=== PATIENT | male | born 1980 | race Caucasian/White ===

== ENCOUNTER 2017-05-31 00:46 | Emergency (ER) | payer BC, SELFPAY | END 2017-05-31 03:04 | disposition home or self-care (01) | PROVIDERS: Emergency Provider Emergency Medicine; Family Provider Family Medicine; Visit Provider Emergency Medicine | DX: K52.9 Noninfective gastroenteritis and colitis, unspecified (principal); E86.0 Dehydration; R73.9 Hyperglycemia, unspecified | CPT/HCPCS: 80053; 82150; 83690; 85025; 96365; 96375; 99284; J2405 ==

== ENCOUNTER → 2021-03-26 17:30 | Outpatient (CLI) | payer BC, SELFPAY | PROVIDERS: Visit Provider Nurse Practitioner Family | DX: Z20.822 Contact with and (suspected) exposure to COVID-19 (principal) | CPT/HCPCS: C9803; U0003; U0005 ==

== ENCOUNTER 2023-04-30 01:30 | Observation (INO) | payer BC, SELFPAY ==
[2023-04-30] VITALS (26 sets, daily range): BP systolic 128–174; BP diastolic 77–105; PULSE 59–108; RESP 16–20; TEMP 36.6–37.1; O2SAT 93–99; BMI 28.1
--- OUTSIDE RECORDS SUMMARY | 2023-04-30 01:39 | XMS_ITS | Continuity of Care Document ---
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 PATIENT OPEN ORDERS Code System Description Frequency Occurrences Priority [place] [id number] [facility] Chest X-ray 2 views ONE TIME 0 Routine March 31, 2023 2:35:00 PM [facility] MELLO Eason [id number] on March 31, 2023 2:43:00 PM [facility] SCHEDULED PROCEDURES Code System Description Status Scheduled Date Upd ated By Patient scheduled procedure information is not available. MEDICATIONS HOME MEDICATIONS Status RXNORM Medication Dose Route Frequency Dates Comments R eported By Updated By Drug Treatment Unknown DISCHARGE MEDICATIONS Status RXNORM Medication Dose Route Frequency Dates Comments Physic minerva Updated By No Discharge Medication Info rmation Available INPATIENT MEDICATIONS Status RXNORM Medication Dose Route Frequency Rate Quantity Dates Comments Physician Updated By No Inpatient Medication Info rmation Available SO
--- OUTSIDE RECORDS SUMMARY | 2023-04-30 01:39 | XMS_ITS | Continuity of Care Document ---
Author Name Unknown Organization [facility] Address [address] [place] [id number]- Care Team Providers Care Family Day Care Provider Name Role Phone NO, FAMILY (REF) Primary Care Physician Unavaila ble Encounter [facility] SONJA [id number] Date(s): 04/02/23 - 04/02/[address] [address]- [place] Encounter Diagnosis Epigastric abdominal pain(Discharge Diagnosis) - 04/02/23 Discharge Disposition: OP Self Care or Home Attending Physician: ANA SCHWARTZ MD-CHERYL Admitting Physician: ANA SCHWARTZ MD-EMR Referring Physician: JEFERSON, SELF REFERRED Allergies, Adverse Reactions, Alerts Substance Reaction Severity Status penicillin Active Assessment and Plan Extracted from: Title:Abdominal Pain *ED Author:ANA SCHWARTZ MD-CHERYL Date:04/02/23 Patient: SABAS CUTLER Age: 43 years Sex: Male : 1980 Associated Diagnoses: Epigastric abdominal pain Author: ANA SCHWARTZ MD-CHERYL Basic Information Time seen: Date & time 04/02/2023 04:38:00. History source: Patient. Arrival mode: Private vehicle. History limitation: None. History of Present Illness Patient is a 43-year-old male with no ported past medical history presents for epigastric abdominal pain which has been present intermittently over the past 8 months. States that approximately every 3 to 4 weeks he develops epigastric abdominal pain which is unrelenting. It then resolved spontaneously. He describes associated nausea and vomiting, has had multiple signs of vomiting this evening without blood and also nonbilious. No change in bowel movements. No dysuria. Patient afebrile upon arrival. He has been seen for this by his PCP, no medications have been prescribed. He has an outpatient ultrasound ordered, has been using [id number] GERD medications without relief. Denies tobacco, alcohol, illicit drug use. Denies any prior surgeries. No other new complaints. Physical Examination Vital Signs Vital Measurements 04/02/2023 4:29 EDT Pan Motor Response Obey commands Pan Verbal Response Oriented Pan Eye Opening Response Spontaneous Pan Coma Score 15 Temperature Source Oral Temperature, Fahrenheit 97.6 Deg F Clinical Temperature, C 36.4 Deg C Peripheral Pulse Rate 61 bpm Respiratory Rate 20 Breaths/Min Systolic Bl
--- OUTSIDE RECORDS SUMMARY | 2023-04-30 01:39 | XMS_ITS | Continuity of Care Document ---
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 Name Role Phone GERSON LARA Admitting Unavaila ble GERSON LARA Primary Attending GERSON Schmidt Primary Care sera [email or web address] RESULTS Patient: OMAYRA Aggarwal Date of : April 01 7 LABORATORY RESULTS Information is not available LABORATORY NARRATIVE RESULTS Information is not available RADIOLOGY RESULTS ORDER 100: CHEST 2 VIEWS ( INC: [id number]) ORDER DATE: March 31, 2023 2:35:00 PM [facility] PATHOLOGY NARRATIVE RESULTS Information is not available MICROBIOLOGY RESULTS No Micro Labs/Results Exist for Patient BLOOD ADMIN RESULTS Information is not available MEDICATIONS HOME MEDICATIONS Status RXNORM Medication Dose Route Frequency Dates Comments R eported By Updated By Drug Treatment Unknown DISCHARGE MEDICATIONS Status RXNORM Medication Dose Route Frequency Dates Comments Physic minerva Updated By No Discharge Medication Info rmation Available INPATIENT MEDICATIONS Status RXNORM Medication Dose Route Frequency Rate Quantity Dates
--- NOTE | 2023-04-30 02:09 | HMH.EDGENADL ---
Discharge Plan Disposition Patient Disposition: Home, Self-Care Chief Complaint: Abdominal Pain Prescriptions Prescriptions: No Action No Known Home Medications Referrals Follow up/Referrals: Salty Omalley [Primary Care Provider] - See instructions Clinical Impressions Clinical Impression: Acute calculous cholecystitis Instructions Patient Instructions: DI for Acute Abdominal Pain Discharge ED Provider: Samuel Rodriguez Adult HPI General Chief complaint: Abdominal Pain Stated complaint: stomach pain Time Seen by Provider: 04/30/23 01:32 Mode of Arrival: Ambulatory Source of Information: Patient Limitations: No Limitations Description of Symptoms (Recalled from ER Triage Doc. by RN): Pt presents with abdominal pain which he believes to be his gallbladder. Pt states he had similiar episode in Mar and CT showed gallstones, due to follow up with GI next week. Pt describes a midsternal burning pain that moves up and down his esophagus. History of Present Illness HPI narrative: 43-year-old male, reportedly previously healthy presents with worsening epigastric/right upper quadrant pain. He reports that he has had these pains in the past. He has been evaluated in March for similar symptoms and was diagnosed with symptomatic cholelithiasis. He has follow-up scheduled for later this week with GI and with surgery through [facility]. He presents tonight due to worsening pain and nausea and vomiting. He reports no fever at home. He reports pain radiates up and down his stomach, has not improved with antacids and viscous lidocaine in the past. Related Data Home Medications Medication Instructions Recorded Confirmed No Known Home Medications 03/26/21 03/26/21 Allergies Allergy/AdvReac Type Severity Reaction Status Date / Time Penicillins [PENICILLINS] Allergy Unknown Verified 03/26/21 15:40 [facility] Disclaimer: The information contained in this section may have been updated after the patient was seen, as this information can be updated by other users. Social History Smoking Status: Never smoker alcohol intake: never current occupational status: employed Travel in the last 8 weeks: None ROS Obtained: Yes All systems reviewed & no additional complaints except as documented Physical Exam General General appearance: alert and anxious Head Head exam: atraumatic and normocephalic Eye Eye exam: Present normal appearance, PERRL and EOMI ENT ENT exam: Present normal oropharynx and normal external ear exam Neck Neck exam: Present normal inspection and full ROM Chest Chest inspection: Present normal inspection and symmetric chest wall rise; Absent tenderness Respiratory Respiratory exam: Present normal lung sounds bilaterally; Absent respiratory distress Cardiovascular Cardiovascular exam: Present regular rate and normal rhythm Abdominal Exam Abdominal exam: Present soft and tenderness (Epigastric and right upper quadrant); Absent distention or guarding Extremities Exam Extremities exam: Present normal inspection; Absent edema or joint swelling Back Exam Back exam: Present normal inspection; Absent tenderness Neurological Exam Neurological exam: Present alert and oriented X3; Absent motor sensory deficit Psychiatric Psychiatric exam: Present normal affect and normal mood Skin Skin exam: Present warm, dry and normal color Lymphatic Lymphatic Findings: no adenopathy Medical Decision Making Medical Records Medical records reviewed: Yes I reviewed the patient's medical records. Anthony Inquiry Pt receiving controlled substance: No Anthony was queried for this patient: No Vital Signs: 04/30/23 01:31 04/30/23 02:00 04/30/23 02:30 Temperature 97.8 F Temperature Source Oral Pulse Rate 98 H 61 Pulse Rate [Left] 63 Respiratory Rate 18 Blood Pressure 152/105 H Blood Pressure [Right Arm] 174/101 H Blood Pressure Mean [Right Arm] 125 B
[2023-04-30 02:11] LABS: Basophils # 0.1 K/mm3 (0-0.2); Basophils % 0.7 % (0.1-2.0); Eosinophils # 0.2 K/mm3 (0.0-0.4); Eosinophils % 2.2 % (0.1-12.0); Hematocrit 48.9 % (42.0-52.0); Hemoglobin 16.2 g/dL (14.1-18.0); Lymphocytes # 2.1 K/mm3 (0.7-4.5); Lymphocytes % 21.3 % (10-50); Mean Corpuscular HGB Conc 33.1 g/dL (31.8-35.4); Mean Corpuscular Hemoglobin 27.6 pg (27.0-31.2); Mean Corpuscular Volume 83.5 fl (80-94); Mean Platelet Volume 8.7 fl (7.4-10.4); Monocytes # 0.7 K/mm3 (0.1-1.0); Monocytes % 7.1 % (1.7-9.3); Neutrophils # 6.9 K/mm3 (1.8-7.8); Neutrophils % 68.6 % (37.0-80.0); Platelet Count 263 K/mm3 (142-424); Red Blood Count 5.86 M/mm3 (4.60-6.20); Red Cell Distribution Width 13.9 % (11.5-17.5); White Blood Count 10.1 K/mm3 (4.8-10.8)
[2023-04-30 02:16] LABS: Chloride 101 mmol/L (98-107); Potassium 4.1 mmoL/L (3.5-5.1); Sodium 138 mmol/L (136-145)
[2023-04-30 02:18] LABS: Alanine Aminotransferase 55 U/L (12-78); Aspartate Amino Transferase 37 U/L (17-59); Blood Urea Nitrogen 14 mg/dl (9-20); Creatinine Clearance Estimated 135 mL/min (50-200); Estimated Glomerular Filt Rate 105 ml/min (>60); GFR (African American) 126 ML/MIN (>60)
[2023-04-30 02:19] LABS: Albumin Level 4.5 g/dl (3.5-5.0); Albumin/Globulin Ratio 1.5 (1.1-1.8); Alkaline Phosphatase 102 U/L (38-126); Anion Gap 11.1 mEq/L (5-15); Bilirubin,Total 0.5 mg/dl (0.2-1.3); Calcium 9.2 mg/dl (8.4-10.2); Carbon Dioxide 30 mmol/L (22.0-30.0); Glucose 123 mg/dl (74-100); Lipase 55 U/L (23-300); Total Protein,Serum 7.5 g/dl (6.3-8.2)
--- NOTE | 2023-04-30 04:43 | CT_ITS ---
PROCEDURE INFORMATION: Exam: CT Abdomen And Pelvis With Contrast Exam date and time: 04/30/2023 4:54 AM Age: 43 years old Clinical indication: Abdominal pain; Additional info: Epigastric/ruq pain TECHNIQUE: Imaging protocol: Computed tomography of the abdomen and pelvis with contrast. Radiation optimization: All CT scans at this facility use at least one of these dose optimization techniques: automated exposure control; mA and/or kV adjustment per patient size (includes targeted exams where dose is matched to clinical indication); or iterative reconstruction. Contrast material: ISOVUE; Contrast volume: 75 ml; Contrast route: IV; REPORTING DATA: Count of CT and Cardiac NM exams in prior 12 months: This patient has received 0 known CTs and 0 known cardiac nuclear medicine studies in the 12 months prior to the current study. COMPARISON: No relevant prior studies available. FINDINGS: Liver: No acute findings. No mass. Gallbladder and bile ducts: Distended gallbladder with subtle pericholecystic inflammatory changes but no biliary ductal dilation. Pancreas: No acute findings, focal abnormality or ductal dilation. Spleen: Calcified granulomata in the spleen. Adrenal glands: Normal. No mass. Kidneys and ureters: No hydronephrosis. Stomach and bowel: No obstruction. No mucosal thickening. Appendix: No evidence of appendicitis. Intraperitoneal space: No free air. No significant fluid collection. Vasculature: No abdominal aortic aneurysm. Lymph nodes: No pathologically enlarged lymph nodes. Urinary bladder: Unremarkable as visualized. Reproductive: Unremarkable as visualized. Bones/joints: No acute fracture. Soft tissues: Uncomplicated fat containing paraumbilical hernia. Uncomplicated bilateral fat containing inguinal hernias. IMPRESSION: Findings suggestive of acute cholecystitis without significant biliary ductal dilation. Follow-up right upper quadrant ultrasound if clinically indicated.
--- NOTE | 2023-04-30 04:51 | PC.NURSE ---
Pt being transported to CT
--- NOTE | 2023-04-30 05:45 | PC.NURSE ---
Attending speaking to Dr. Wiley
--- NOTE | 2023-04-30 05:50 | PC.NURSE ---
Per ER attending, we will need to page ultrasound to come in for RUQ exam as per discussion with Dr. Wiley r/t CT findings suggestive of Acute Cholecystitis. Valentin in radiology notified to page full stack python developer ultrasound for RUQ exam needed prior to admit/transfer/dc
--- NOTE | 2023-04-30 05:53 | US_ITS ---
PROCEDURE INFORMATION: Exam: US Abdomen, Limited; Soft Tissue Exam date and time: 04/30/2023 6:36 AM Age: 43 years old Clinical indication: Abdominal pain; Acute; Additional info: Ruq pain, CT indeterminate TECHNIQUE: Imaging protocol: US abdomen. Real time ultrasound with image documentation. Limited exam focused on the soft tissues. COMPARISON: CT ABDOMEN PELVIS W CON 04/30/2023 4:54 AM FINDINGS: Gallbladder: Multiple gallstones are identified. There is mild gallbladder wall thickening measuring up to 6 mm. There is trace pericholecystic fluid. Soft tissues: Unremarkable. No masses or collections in visualized area. IMPRESSION: Multiple gallstones. Mild gallbladder wall thickening and trace pericholecystic fluid.
--- NOTE | 2023-04-30 07:07 | PC.NURSE ---
Report given to dayshift, US result positive for acute cholecystitis, Dr Rodriguez at bedside
--- NOTE | 2023-04-30 07:33 | EXP.HP ---
History of Present Illness *Admission Date: 04/30/23 *Reason for visit:: Abdominal pain *History of present illness: Mr. Topete is a 43-year-old gentleman who presented to the ER with acute worsening of abdominal pain. He has had pain on and off for the past year and was in the process of being worked up for evaluation of his gallbladder and possible cholecystectomy over the coming weeks. Pain acutely worsened last night leading him to come to the ER. Pain located in the epigastric and right upper quadrant. Does have a diagnosis of cholelithiasis. Developed nausea and vomiting yesterday. Reports no fever, syncope, diarrhea. Pain radiates up and down his stomach but is most prominent in right upper quadrant. No improvement with viscous lidocaine or antiacids. Necessitated IV pain medication in the ER. CT concerning for distended gallbladder and possible cholecystitis. Ultrasound obtained showing gallstones, pericholecystic fluid, findings concerning for acute cholecystitis. Surgery consulted, recommended patient be admitted and made n.p.o. for evaluation in the morning. Medicine consulted for admission. [facility] Disclaimer: The information contained in this section may have been updated after the patient was seen, as this information can be updated by other users. Medical History No significant past medical history Family History Family history of hypertension Mother Family history of diabetes mellitus type II Father Social History Smoking Status: Never smoker alcohol intake: never substance use type: denies use current occupational status: employed Travel in the last 8 weeks: None Review of Systems Review of Systems Review of systems (narrative): 14 point review of systems performed, pertinent positives and negatives as per HPI Meds Home Medications and Allergies Home Medications Medication Instructions Recorded Confirmed Type hydrocodone 5 mg-acetaminophen 325 1 - 2 tab PO Q6H PRN Pain #17 tabs 04/30/23 Rx mg tablet levofloxacin 750 mg tablet 750 mg PO DAILY #3 tabs 04/30/23 Rx New Prescriptions to Start Prescriptions: hydrocodone-acetaminophen Baudilio Wiley levofloxacin Baudilio Wiley Allergies Allergy/AdvReac Type Severity Reaction Status Date / Time Penicillins [PENICILLINS] Allergy Unknown Verified 04/30/23 13:44 Exam Data for Last 24 hours Vital signs and Labs for Last 24 Hours: Temp Pulse Resp BP Pulse Ox O2 Del Method 97.8 F 66 18 152/105 H 99 Room Air 04/30/23 01:31 04/30/23 04:00 04/30/23 01:31 04/30/23 02:00 04/30/23 04:00 04/30/23 02:30 Laboratory Results - last 24 hr 04/30/23 02:00: WBC 10.1, RBC 5.86, Hgb 16.2, Hct 48.9, MCV 83.5, MCH 27.6, MCHC 33.1, RDW 13.9, Plt Count 263, MPV 8.7, Neut % (Auto) 68.6, Lymph % (Auto) 21.3, Davis % (Auto) 7.1, Eos % (Auto) 2.2, Baso % (Auto) 0.7, Neut # (Auto) 6.9, Lymph # (Auto) 2.1, Davis # (Auto) 0.7, Eos # (Auto) 0.2, Baso # (Auto) 0.1, Sodium 138, Potassium 4.1, Chloride 101, Carbon Dioxide 30, Anion Gap 11.1, BUN 14, Creatinine 0.80, Estimated Creat Clear 135, Estimated GFR 105, Est GFR ( Amer) 126, Glucose 123 H, Calcium 9.2, Total Bilirubin 0.5, AST 37, ALT 55, Alkaline Phosphatase 102, Total Protein 7.5, Albumin 4.5, Globulin 3.0, Albumin/Globulin Ratio 1.5, Lipase 55 I & O for Last 24 hours: Intake & Output 04/27/23 04/28/23 04/29/23 04/30/23 23:59 23:59 23:59 23:59 Weight 81.647 kg Constitutional Constitutional: no acute distress *Routine HEENT Exam Head: Present normocephalic Eye: Present EOMI and PERRL ENT: Present mucous membranes moist *Routine Neck Exam Neck: Present supple; Absent lymphadenopathy *Routine Respiratory Exam Respiratory: Present CTA bilaterally *Routine Ca
--- NOTE | 2023-04-30 08:15 | EXP.SURG.CON ---
History of Present Illness *Admission Date: 04/30/23 *Reason for visit:: Abdominal pain *History of present illness: Patient is a 43-year-old male. He has had issues with intermittent upper abdominal pain for some time. He has had symptoms usually beginning in the mid abdomen and then radiating to the epigastrium and right upper quadrant. He had actually been seen in an emergency [facility] when he had a severe attack and was managed as an outpatient. He had outpatient ultrasound ordered which was performed about 2 weeks ago at outside facility and reportedly revealed gallstone. He has upcoming appointments with general surgery and gastroenterology at [facility] this week. Symptoms have usually been self-limited. However he had progressive severe refractory symptoms and therefore presented to the emergency department. He was found to have mild to moderate epigastric and right upper quadrant tenderness. He did have some vomiting in the emergency department. Evaluation revealed normal liver function tests and lipase. Symptoms remained persistent and refractory. He underwent CT scan with IV contrast which revealed findings suggestive of acute cholecystitis characterized by minor pericholecystic inflammatory changes without ductal dilatation or gallstones. Symptoms were persistent and quite pronounced. He underwent ultrasound which reveals multiple gallstones with mild gallbladder wall thickening and trace pericholecystic fluid. General surgery was contacted. Given the patient's clinical symptomatic acute cholecystitis with sonographic evidence of acute cholecystitis refractory to outpatient management it was felt it would be reasonable for inpatient admission for management of acute cholecystitis. [facility] Disclaimer: The information contained in this section may have been updated after the patient was seen, as this information can be updated by other users. Social History Smoking Status: Never smoker alcohol intake: never current occupational status: employed Travel in the last 8 weeks: None Review of Systems Review of Systems Review of systems:: pertinent systems reviewed and negative unless documented below *Gastrointestinal Gastrointestinal: Reports as per HPI, Reports abdominal pain and Reports nausea Meds Home Medications and Allergies Home Medications Medication Instructions Recorded Confirmed Type No Known Home Medications 03/26/21 03/26/21 History New Prescriptions to Start Prescriptions: Allergies Allergy/AdvReac Type Severity Reaction Status Date / Time Penicillins [PENICILLINS] Allergy Unknown Verified 03/26/21 15:40 Exam (Inpt) Vital signs and Labs for Last 24 Hours: Temp Pulse Resp BP Pulse Ox O2 Del Method 97.8 F 66 18 152/105 H 99 Room Air 04/30/23 01:31 04/30/23 04:00 04/30/23 01:31 04/30/23 02:00 04/30/23 04:00 04/30/23 02:30 Laboratory Results - last 24 hr 04/30/23 02:00: WBC 10.1, RBC 5.86, Hgb 16.2, Hct 48.9, MCV 83.5, MCH 27.6, MCHC 33.1, RDW 13.9, Plt Count 263, MPV 8.7, Neut % (Auto) 68.6, Lymph % (Auto) 21.3, Becker % (Auto) 7.1, Eos % (Auto) 2.2, Baso % (Auto) 0.7, Neut # (Auto) 6.9, Lymph # (Auto) 2.1, Becker # (Auto) 0.7, Eos # (Auto) 0.2, Baso # (Auto) 0.1, Sodium 138, Potassium 4.1, Chloride 101, Carbon Dioxide 30, Anion Gap 11.1, BUN 14, Creatinine 0.80, Estimated Creat Clear 135, Estimated GFR 105, Est GFR ( Amer) 126, Glucose 123 H, Calcium 9.2, Total Bilirubin 0.5, AST 37, ALT 55, Alkaline Phosphatase 102, Total Protein 7.5, Albumin 4.5, Globulin 3.0, Albumin/Globulin Ratio 1.5, Lipase 55 I & O for Labs for Last 24 Hours: Intake & Output 04/27/23 04/28/23 04/29/23 04/30/23 11:59 11:59 11:59 11:59 Weight 180 lb Constitutional: no acute distress Head: Present normocephalic Respiratory: Present CTA bilaterally Cardiac: Present Reg Rate and Rhythm GI: Present soft Comments:: Tender in e
--- NOTE | 2023-04-30 09:41 | PC.NURSE ---
PT IS IN GOWN AND ABDOMINAL AREA SHAVED AND READY FOR OR
--- NOTE | 2023-04-30 10:19 | HMH.PHAINT1 ---
Pharmacy Intervention Comments: MEDICATION RECONCILIATION COMPLETE USING EXTERNAL PHARMACY FILL HISTORY.
--- NOTE | 2023-04-30 10:21 | PC.NURSE ---
Tano Sandhu here for pt.
--- NOTE | 2023-04-30 10:24 | PC.NURSE ---
PT LEAVING ER FOR SURGERY
--- NOTE | 2023-04-30 10:27 | P.PNANES_ITS ---
[facility] Disclaimer: The information contained in this section may have been updated after the patient was seen, as this information can be updated by other users. Social History Smoking Status: Never smoker alcohol intake: never substance use type: denies use current occupational status: employed Travel in the last 8 weeks: None [facility] Anesthesia Checklist Patient Identification Patient Identification: Arm Band Structural Data Admitted From: Home Planned Operative Procedure/s: Laparoscopic Cholecystectomy Consent for Planned Operative Procedure(s) Verified: Yes Verified Documents: Surgical Consent and History and Physical NPO Status Verified Time NPO: 00:00 Additional verifications Anesthesia Reactions: No Airway Assessment Mallampati Score:: Class II C-Spine Mobility Assessed: Yes TMJ Mobility Assessed: Yes Dentition: Good Dentition Neurological Assessment Level of Consciousness: Awake and Alert Anesthesia Plan Anesthesia Risk discussed: Yes Anesthesia Plan: Verified ASA Class: I (E) Anesthesia Type: General
--- NOTE | 2023-04-30 12:42 | EXP.OP.NOTE ---
Date of procedure: 04/30/23 Pre-op Diagnosis:: Acute cholecystitis Post-op Diagnosis:: Acute calculus cholecystitis Procedure performed:: Laparoscopic cholecystectomy Primary repair open umbilical hernia Surgeon:: Baudilio Wiley MD TELEX OPERATOR:: Gaston Sandhu Anesthesia: GETJeanette Estimated blood loss (mL): 25 Clinical Note:: Patient is a 43-year-old male. He has had issues with intermittent upper abdominal pain for some time. He has had symptoms usually beginning in the mid abdomen and then radiating to the epigastrium and right upper quadrant. He had actually been seen in an emergency department in [facility] when he had a severe attack and was managed as an outpatient. He had outpatient ultrasound ordered which was performed about 2 weeks ago at outside facility and reportedly revealed gallstone. He has upcoming appointments with general surgery and gastroenterology at [facility] this week. Symptoms have usually been self-limited. However he had progressive severe refractory symptoms and therefore presented to the emergency department. He was found to have mild to moderate epigastric and right upper quadrant tenderness. He did have some vomiting in the emergency department. Evaluation revealed normal liver function tests and lipase. Symptoms remained persistent and refractory. He underwent CT scan with IV contrast which revealed findings suggestive of acute cholecystitis characterized by minor pericholecystic inflammatory changes without ductal dilatation or gallstones. Symptoms were persistent and quite pronounced. He underwent ultrasound which reveals multiple gallstones with mild gallbladder wall thickening and trace pericholecystic fluid. General surgery was contacted. Given the patient's clinical symptomatic acute cholecystitis with sonographic evidence of acute cholecystitis refractory to outpatient management it was felt it would be reasonable for inpatient admission for management of acute cholecystitis. Patient was seen and examined in the emergency department as he was awaiting an inpatient bed. It was felt that he had clinical and sonographic evidence of acute cholecystitis. Options were discussed. Plan was made to proceed with cholecystectomy. Operative findings:: Patient had a thickened acutely edematous distended hydropic gallbladder packed full of gallstones. There was no evidence of any infection or necrosis but there was present significant acute inflammation. Operative note:: Patient was taken the operating room. He was given preoperative intravenous antibiotics. In the operating room he was placed in a supine position. General anesthesia was induced via endotracheal tube. Abdomen was prepped and draped in the standard surgical fashion. Subumbilical skin incision was made. Patient had noted a umbilical hernia preoperatively with a small defect and reducible. Dissection was carried down to hernia sac. This was dissected free from surrounding subcutaneous tissue. Hernia sac was incised from the umbilical subdermis. Extraneous tissue including hernia sac and preperitoneal fatty tissue was excised to relatively normal-appearing fascia and sent off as specimen labeled hernia sac. 0 Vicryl fascial stay sutures were placed and Hale blunt trocar was inserted into the peritoneal cavity and secured with the fascial stay sutures. CO2 pneumoperitoneum was achieved. Patient was positioned in reverse Trendelenburg left side down. A couple 5 mm trocars were inserted in the right upper abdomen 11 mm trocar was inserted in the epigastrium. Gallbladder was identified and found to be tense and distended and acutely edematous. It was grasped retracted anteriorly. Initially it appeared as though there was a very large stone in the gallbladder. However ultimately it was determined that the gallbladder was packed full of multiple small to moderate gallstones. Adhesions were taken down from the gallbladder. Infundibul
--- NOTE | 2023-04-30 12:43 | EXP.ANES.I ---
[facility] Anesthesia Record Part I Anesthesia Record I Intake, IV Amount: 1,000 Hydration: Adequate Estimated blood loss (mL): 10 Urine output (mL): 0 Blood Products used (#): none Blood Pressure: 132/86 SaO2: 93 Pulse Rate: 90 Airway Patency: Patent Respiratory Rate: 16 Temperature: 98.2 F Patient is:: Drowsy and Stable Stable to PACU at:: 12:40
--- NOTE | 2023-04-30 13:17 | PC.NURSE ---
arrived by bed from surgery
--- NOTE | 2023-04-30 18:28 | PC.NURSE ---
pt got up and ambulated around the unit. he tolerated it well.
--- NOTE | 2023-04-30 18:46 | PC.NURSE ---
pt has tolerated all po intake well
--- NOTE | 2023-05-01 03:56 | EXP.DC.SUM ---
General Admission date:: 04/30/23 Discharge date: 05/01/23 HPI HPI HPI: Mr. Topete is a 43-year-old gentleman who presented to the ER with acute worsening of abdominal pain. He has had pain on and off for the past year and was in the process of being worked up for evaluation of his gallbladder and possible cholecystectomy over the coming weeks. Pain acutely worsened last night leading him to come to the ER. Pain located in the epigastric and right upper quadrant. Does have a diagnosis of cholelithiasis. Developed nausea and vomiting yesterday. Reports no fever, syncope, diarrhea. Pain radiates up and down his stomach but is most prominent in right upper quadrant. No improvement with viscous lidocaine or antiacids. Necessitated IV pain medication in the ER. CT concerning for distended gallbladder and possible cholecystitis. Ultrasound obtained showing gallstones, pericholecystic fluid, findings concerning for acute cholecystitis. Surgery consulted, recommended patient be admitted and made n.p.o. for evaluation in the morning. Medicine consulted for admission. Hospital Course Hospital Course Hospital Course: 43-year-old male with acute worsening right upper quadrant pain accompanied by nausea and vomiting. Eval in the ER positive for cholecystitis. Discussed case with ER physician, requested admission for surgical evaluation in the morning and possible cholecystectomy. Medicine agreed to admit for further management. Patient taken to surgery with cholecystectomy performed. Tolerated well. Stable for discharge home. Problems addressed as follows: Acute cholecystitis - Reviewed CT and ultrasound, noted to have stones and edema of gallbladder wall. No elevation in bilirubin or liver enzymes but clinically patient has acute calculus cholecystitis. Surgery consulted, evaluated patient in the morning. Patient taken to the OR on 04/30 for further management. Discussed case with surgeon, gallbladder removed successfully. Inflamed but not infected. Recommend empiric 3 days of levofloxacin. Antibiotics prescribed at discharge. Tolerated diet overnight. Pain stable. Repeat CBC and CMP with improvement in white cell count of 13.5. Plan to follow-up closely with surgery in the outpatient setting. Exam Data for Last 24 hours Vital signs and Labs for Last 24 Hours: Temp Pulse Resp BP Pulse Ox O2 Del Method 98.7 F 90 18 150/81 H 96 Room Air 04/30/23 23:50 04/30/23 23:50 04/30/23 23:50 04/30/23 23:50 04/30/23 23:50 05/01/23 03:00 I & O for Last 24 hours: Intake & Output 04/28/23 04/29/23 04/30/23 05/01/23 23:59 23:59 23:59 23:59 Intake Total 1270 / 1270 Output Total 0 / 0 Balance 1270 / 1270 Weight 81.647 kg Constitutional Constitutional: no acute distress *Routine HEENT Exam Head: Present normocephalic Eye: Present EOMI and PERRL ENT: Present mucous membranes moist *Routine Neck Exam Neck: Present supple; Absent lymphadenopathy *Routine Respiratory Exam Respiratory: Present CTA bilaterally *Routine Cardiovascular Exam Cardiovascular: Present RRR *Routine Abdominal Exam Abdominal: Present soft, normoactive bowel sounds and tenderness (Minimal at incision sites) Comments: Bandages clean dry and intact *Routine Extremities Exam Extremities: Absent cyanosis, clubbing or edema *Routine Skin Exam Skin: Present warm; Absent rash *Routine Neurological Exam Neurological: Present alert, oriented X3 and moving all extremities; Absent altered mental status DS: Diagnosis Discharge Diagnosis (1) Acute calculous cholecystitis: Status: Acute Code(s): K80.00 - Calculus of gallbladder with acute cholecystitis without obstruction Meds Home Medications and Allergies Home Medications Medication Instructions Recorded Confirmed Type hydrocodone 5 mg-acetaminophen 325 1 - 2 tab PO Q6H PRN Pain #17 tabs 04/30/23 Rx mg tablet levofloxacin 750 mg tablet 750 mg PO DAILY #3 tabs 1
[2023-05-01 04:00] VITALS: BP 124/71; PULSE 87; RESP 16; TEMP 36.7; O2SAT 95; BMI 29.3
--- NOTE | 2023-05-01 07:18 | EXP.SURG.PN ---
Subjective Narrative: Patient feels well. No complaints. Exam Data for Last 24 hours Vital signs and Labs for Last 24 Hours: Temp Pulse Resp BP Pulse Ox O2 Del Method 98.0 F 87 16 124/71 95 Room Air 05/01/23 04:00 05/01/23 04:00 05/01/23 04:00 05/01/23 04:00 05/01/23 04:00 05/01/23 05:00 I & O for Last 24 hours: Intake & Output 04/28/23 04/29/23 04/30/23 05/01/23 11:59 11:59 11:59 11:59 Intake Total 1270 / 1270 Output Total 0 / 0 Balance 1270 / 1270 Weight 180 lb 187 lb 1 oz *Routine Abdominal Exam Abdominal: Present soft Progress Note: A&P Assessment and plan (1) Acute calculous cholecystitis: Status: Acute Assessment and plan: Discharge home today.
[2023-05-01 07:27] LABS: Alanine Aminotransferase 60 U/L (12-78); Albumin Level 3.6 g/dl (3.5-5.0); Albumin/Globulin Ratio 1.3 (1.1-1.8); Alkaline Phosphatase 76 U/L (38-126); Anion Gap 11.7 mEq/L (5-15); Aspartate Amino Transferase 43 U/L (17-59); Bilirubin,Total 0.6 mg/dl (0.2-1.3); Blood Urea Nitrogen 12 mg/dl (9-20); Calcium 8.3 mg/dl (8.4-10.2); Carbon Dioxide 26 mmol/L (22.0-30.0); Chloride 102 mmol/L (98-107); Creatinine Clearance Estimated 140 mL/min (50-200); Estimated Glomerular Filt Rate 105 ml/min (>60); GFR (African American) 126 ML/MIN (>60); Globulin 2.8 g/dL (1.3-3.2); Glucose 105 mg/dl (74-100); Magnesium 2.1 mg/dl (1.6-2.3); Potassium 3.7 mmoL/L (3.5-5.1); Sodium 136 mmol/L (136-145); Total Protein,Serum 6.4 g/dl (6.3-8.2)
--- NOTE | 2023-05-01 07:28 | P.PNANES_ITS ---
[facility] Anesthesia Record Part II Anesthesia Record Part II Discharge Time: 13:10 Destination: Medical Surgical Department PACU nurse assessment reviewed?: Yes Patient Condition:: Good Anesthesia Complications:: None Swallowing reflex intact?: Yes Airway Patency: Patent Cyanosis?: No Blood Pressure: 136/87 SaO2: 95 Respiratory Rate: 20 Pulse Rate: 98 Temperature: 97.9 F Mental Status: Alert & Oriented Pain level:: 0 Nausea and/or vomitting:: None Intake, IV Amount: 0 Hydration: Adequate
[2023-05-01 07:30] VITALS: BP 136/87; PULSE 98; RESP 20; TEMP 36.6; O2SAT 95
[2023-05-01 07:37] LABS: Basophils % 0.2 % (0.1-2.0); Eosinophils # 0.1 K/mm3 (0.0-0.4); Eosinophils % 0.6 % (0.1-12.0); Hematocrit 44.5 % (42.0-52.0); Hemoglobin 15.2 g/dL (14.1-18.0); Lymphocytes % 14.9 % (10-50); Mean Corpuscular HGB Conc 34.1 g/dL (31.8-35.4); Mean Corpuscular Volume 82.4 fl (80-94); Mean Platelet Volume 8.3 fl (7.4-10.4); Monocytes % 7.6 % (1.7-9.3); Neutrophils # 10.4 K/mm3 (1.8-7.8); Neutrophils % 76.6 % (37.0-80.0); Platelet Count 227 K/mm3 (142-424); Red Cell Distribution Width 14.1 % (11.5-17.5); White Blood Count 13.5 K/mm3 (4.8-10.8)
[2023-05-01 07:56] VITALS: BP 134/73; PULSE 74; RESP 17; TEMP 36.6; O2SAT 95
--- NOTE | 2023-05-03 15:59 | CARE MANAGER ---
Contacted patient related to hospital discharge. He states he is having some nausea today and is sore, but otherwise ok. He denies questions or concerns and is aware of follow up appointments.LAITH Griffin
== END 2023-05-01 08:26 | disposition home or self-care (01) ==
LOC: ER 07:44 → 2ND 07:54
PROVIDERS: Surgery; Admitting Provider Internal Medicine Adolescent Medicine; Emergency Provider Emergency Medicine; PCP Internal Medicine; Visit Provider Internal Medicine Adolescent Medicine
PROC: 0FT44ZZ Resection of Gallbladder, Percutaneous Endoscopic Approach (ICD-10-PCS; CPT 47562; principal; 2023-04-30 10:30)
DX: K80.00 Calculus of gallbladder with acute cholecystitis without obstruction (principal)
CPT/HCPCS: 47562; 74177; 76705; 80053; 83690; 83735; 85025; 99285; G0378; J1956; J2405; Q9967

== ENCOUNTER 2023-08-11 15:48 | Emergency (ER) | payer BC, SELFPAY ==
[2023-08-11 16:00] VITALS: BP 145/88; PULSE 113; RESP 18; TEMP 37; O2SAT 96; BMI 30.7
--- NOTE | 2023-08-11 16:17 | EXP.UTC ---
Discharge Plan Disposition Patient Disposition: Home, Self-Care Condition: Good Prescriptions Prescriptions: New benzonatate 100 mg capsule 100 mg PO TIDP PRN (Reason: Cough) Qty: 30 0RF oseltamivir [Tamiflu] 75 mg capsule 75 mg PO BID Qty: 10 0RF ondansetron 4 mg Tablet,Disintegrating 4 mg PO Q8H PRN (Reason: Nausea) Qty: 8 0RF Referrals Follow up/Referrals: Salty Omalley [Primary Care Provider] - See instructions Activity Restrictions/Add. Instructions Additional Instructions/Restrictions: Drink plenty of fluids. Take tylenol or ibuprofen for pain or fever. Take the medications as directed. Follow up with your regular doctor. GO TO THE ER FOR ANY WORSENING SYMPTOMS Clinical Impressions Clinical Impression: Influenza B Instructions Patient Instructions: Influenza, DI for Influenza -- Adult, Ondansetron, Oseltamivir Discharge ED Provider: Thomas Mejia [facility] [place] HPI General Stated complaint: nadege, body aches,fever Mode of Arrival: Ambulatory Source of Information: Patient Limitations: No Limitations Time Seen by Provider: 08/11/23 16:17 Description of Symptoms (Recalled from Triage Doc. by RN): Pt's symptoms are congestion, body aches, fever, and chills. Daughter was dx with strep/ HEENT Symptoms (Recalled from RN notes): Yes Resp Symptoms (Recalled from RN notes): No Skin Symptoms (Recalled from RN notes): No MS Symptoms (Recalled from RN notes): No Functional Status (Recalled from RN notes): n/a History of Present Illness Provider Complaint: He states that for the past 1 day he has had body aches, nausea, cough, and fever. Related Data Previous Rx's Medication Instructions Recorded benzonatate 100 mg capsule 100 mg PO TIDP PRN Cough #30 caps 08/11/23 ondansetron 4 mg disintegrating 4 mg PO Q8H PRN Nausea #8 tabs 08/11/23 tablet oseltamivir 75 mg capsule (Tamiflu) 75 mg PO BID #10 caps 08/11/23 Allergies Allergy/AdvReac Type Severity Reaction Status Date / Time Penicillins [PENICILLINS] Allergy Unknown Verified 08/11/23 16:13 Worker's Comp Is this a Worker's Comp case?: No [facility] Disclaimer: The information contained in this section may have been updated after the patient was seen, as this information can be updated by other users. Medical History (Updated 08/11/23 @ 16:37 by Thomas Mejia APRN) No significant past medical history Surgical History History of laparoscopic cholecystectomy Family History Mother Family history of hypertension Father Family history of diabetes mellitus type II Social History Smoking Status: Never smoker alcohol intake: never substance use type: denies use current occupational status: employed Travel in the last 8 weeks: None ROS Obtained: Yes All systems reviewed & no additional complaints except as documented Constitutional Constitutional: Reports chills and Reports fever(s) Eyes Eyes: Denies eye discharge ENT Ears, Nose, Mouth, and Throat: Reports as per HPI Cardiovascular Cardiovascular: Denies chest pain Respiratory Respiratory: Denies chest congestion and Reports cough Gastrointestinal Gastrointestingal: Reports nausea; Denies abdominal pain, constipation, cramping, diarrhea or vomiting Musculoskeletal Musculoskeletal: Denies arthralgias Integumentary/Breasts Skin/Breast: Denies rash Neurologic Neurologic: Denies paresthesias Physical Exam General General appearance: alert and in no apparent distress Eye Eye exam: Present normal appearance, PERRL and EOMI ENT ENT exam: Present mucous membranes moist and normal external ear exam Expanded ENT Exam External ear exam: Present normal external inspection TM/Canal exam: Bilateral TM: erythema and bulging Nose exam: Absent sinus tenderness Nasal speculum exam: Bilateral: normal Mouth exam: Present normal external inspection; Absent drooling Teeth exam: Present normal inspection Throat exam: Present tonsillar erythema and tonsillomegaly Neck Neck exam: Present normal inspection, full ROM and trachea midline; Absent tenderness, lymphadenopathy or thyromegaly Chest Chest inspection: Present normal inspection and symmetric chest wall rise; Absent tenderness or rash Respiratory Respiratory exam: Present normal lung sounds bilaterally; Absent respiratory distress, wheezes, stridor or accessory muscle use Cardiovascular Cardiovascular exam: Present regular rate, normal rhythm and normal heart sounds Abdominal Exam Abdominal exam: Present soft; Absent distention, tenderness, guarding, rebound or rigidity Extremities Exam Extremities exam: Present normal inspection, full ROM and normal capillary refill; Absent tenderness or calf tenderness Back Exam Back exam: Present normal inspection and full ROM; Absent tenderness Neurological Exam Neurological exam: Present alert and oriented X3 Psychiatric Psychiatric exam: Present normal affect and normal mood Skin Skin exam: Present warm, dry, intact and normal color Lymphatic Lymphatic Findings: no adenopathy Medical Decision Making Medical Records Medical records reviewed: No I reviewed the patient's medical records. Anthony Inquiry Pt receiving controlled substance: No Vital Signs: 08/11/23 16:00 Temperature 98.6 F Temperature Source Oral Pulse Rate [Right Radial] 113 H Respiratory Rate 18 Blood Pressure [Right Arm] 145/88 H Blood Pressure Mean [Right Arm] 107 Blood Pressure Source [Right Arm] Automatic Cuff Blood Pressure Position [Right Arm] Sitting 02 Sat by Pulse Oximetry 96 Oxygen Delivery Method Room Air Lab Data Lab results reviewed: Yes I reviewed the patient's lab results.
[2023-08-11 16:21] LABS: UTC Strep Screen (Rapid) Negative (Negative)
[2023-08-11 16:22] LABS: UTC Influenza A Antigen Positive (Negative); UTC Influenza B Antigen Negative (Negative)
[2023-08-11 16:44] VITALS: BP 145/88; PULSE 113; RESP 18; TEMP 37; O2SAT 96
== END 2023-08-11 16:44 | disposition home or self-care (01) ==
PROVIDERS: Emergency Provider Nurse Practitioner Family; PCP Internal Medicine
DX: J10.1 Influenza due to other identified influenza virus with other respiratory manifestations (principal); R05.9 Cough, unspecified; R50.9 Fever, unspecified; R11.0 Nausea; M79.18 Myalgia, other site
CPT/HCPCS: 87804; 87880; 99204; 99212; G0463